=== PATIENT | male | born 1955 | race African-American/Black ===

== ENCOUNTER → 2016-06-12 | Outpatient (CLI) | payer OTHER ==
[2016-06-12 09:11] LABS: Basophils % (A) 0 %; CH 29.7; Eosinophils # (A) 0.1 k/uL (0-0.7); Eosinophils % (A) 1 %; HDW 2.63; HGB 14.2 gm/dL (13.0-17.5); Luc # (Auto) 0.27; Luc % (Auto) 4; Lymphocytes # (A) 1.9 k/uL (1.0-4.8); Lymphocytes % (A) 26 %; MCH 29.5 pg (25.0-35.0); MCHC 31.6 g/dL (31.0-37.0); MCV 93.3 fL (80.0-100.0); Mean Platelet Volume 6.6; Monocytes # (A) 0.4 k/uL (0-1.0); Monocytes % (A) 6 %; Neutrophils # (A) 4.6 k/uL (1.3-7.7); Neutrophils % (A) 63 %; RBC 4.82 m/uL (4.30-5.90); RDW 12.6 % (11.5-15.5); WBC 7.3 k/uL (3.8-10.6); WBC (Perox) 7.09
[2016-06-12 11:31] LABS: ALT 26 U/L (21-72); AST 29 U/L (17-59); Alkaline Phosphatase 72 U/L (38-126); Anion Gap 9 mmol/L; Blood Urea Nitrogen 12 mg/dL (9-20); Calcium 9.7 mg/dL (8.4-10.2); Carbon Dioxide 23 mmol/L (22-30); Chloride 111 mmol/L (98-107); Cholesterol 240 mg/dL (<200); Glucose 82 mg/dL (74-99); Non-African American GFR(MDRD) >60 (>60 ml/min/1.73 sqM); Potassium 4.9 mmol/L (3.5-5.1); Sodium 143 mmol/L (137-145); Total Bilirubin 0.6 mg/dL (0.2-1.3); Total Protein 7.7 g/dL (6.3-8.2); Triglycerides 90 mg/dL (<150)
[2016-06-12 11:39] LABS: HDL Cholesterol 122 mg/dL (40-60)
== END | disposition home or self-care (01) ==
LOC: LABWHC1 08:36
PROVIDERS: ATTEND Family Medicine
DX: Z00.01 Encounter for general adult medical examination with abnormal findings (principal)
CPT/HCPCS: 80061; 80053; 85025; 36415; G0103

== ENCOUNTER → 2016-06-27 | Outpatient (CLI) | payer OTHER ==
--- NOTE | 2016-07-07 14:11 | ECHOF ---
Referral Reason:R01.1 Undiagnosed Cardiac Murmor MEASUREMENTS -------- HEIGHT: 170.2 cm WEIGHT: 70.3 kg BP: RVIDd: 2.7 cm (< 3.3) IVSd: 1.0 cm (0.6 - 1.1) LVIDd: 4.8 cm (3.9 - 5.3) LVPWd: 1.3 cm (0.6 - 1.1) IVSs: 1.4 cm LVIDs: 4.0 cm LVPWs: 1.6 cm LA Diam: 3.4 cm (2.7 - 3.8) Ao Diam: 3.3 cm (2.0 - 3.7) AV Cusp: 2.5 cm (1.5 - 2.6) LA Diam: 4.2 cm (2.7 - 3.8) MV EXCURSION: 20.824 mm (> 18.000) MV EF SLOPE: 102 mm/s (70 - 150) EPSS: 0.5 cm MV E Michael: 0.83 m/s MV DecT: 200 ms MV A Michael: 0.67 m/s MV E/A Ratio: 1.24 AR PHT: 783 ms RAP: 5.00 mmHg RVSP: 20.59 mmHg FINDINGS -------- Sinus rhythm. This was a technically good study. Left ventricular wall thickness is normal. Overall left ventricular systolic function is normal with, an EF between 55 - 60 %. The right ventricle is normal in size. The right atrial size is normal. There is mild aortic valve sclerosis. There is moderate aortic regurgitation. Mild mitral annular calcification present. Tzgp-[id number] mitral regurgitation is present. Mild tricuspid regurgitation present. There is no evidence of pulmonary hypertension. The right ventricular systolic pressure, as measured by Doppler, is 20.59mmHg. There is no pulmonic regurgitation present. The aortic root size is normal. There is no pericardial effusion. CONCLUSIONS -------- 1. Left ventricular wall thickness is normal. 2. Overall left ventricular systolic function is normal with, an EF between 55 - 60 %. 3. There is mild aortic valve sclerosis. 4. There is moderate aortic regurgitation. 5. Mild mitral annular calcification present. 6. Oytg-qy-bvbworcj mitral regurgitation is present. 7. Mild tricuspid regurgitation present. 8. There is no evidence of pulmonary hypertension. 9. The right ventricular systolic pressure, as measured by Doppler, is 20.59mmHg. CLINICAL EDUCATION CONSULTANT: Tamika Morales RDCS
== END ==
LOC: RADECHMAIN 13:03
PROVIDERS: ATTEND Family Medicine
DX: I35.8 Other nonrheumatic aortic valve disorders (principal); I35.1 Nonrheumatic aortic (valve) insufficiency; I07.1 Rheumatic tricuspid insufficiency
CPT/HCPCS: 93306

== ENCOUNTER → 2019-08-30 | Outpatient (CLI) | payer OTHER ==
--- NOTE | 2019-08-31 10:00 | ECHOF ---
Referral Reason:I35.1 nonrheumatic aortic insufficiency MEASUREMENTS -------- HEIGHT: 170.2 cm WEIGHT: 68.0 kg BP: RVIDd: 3.0 cm (< 3.3) IVSd: 1.3 cm (0.6 - 1.1) LVIDd: 5.2 cm (3.9 - 5.3) LVPWd: 1.3 cm (0.6 - 1.1) IVSs: 1.5 cm LVIDs: 3.6 cm LVPWs: 1.8 cm LA Diam: 3.8 cm (2.7 - 3.8) LAESV Index (A-L): 26.57 ml/m Ao Diam: 3.8 cm (2.0 - 3.7) AV Cusp: 2.2 cm (1.5 - 2.6) MV EXCURSION: 17.896 mm (> 18.000) MV EF SLOPE: 67 mm/s (70 - 150) EPSS: 0.7 cm MV E Michael: 0.64 m/s MV DecT: 235 ms MV A Michael: 0.83 m/s MV E/A Ratio: 0.77 AV maxP.20 mmHg AV meanP.71 mmHg AR PHT: 477 ms RAP: 5.00 mmHg RVSP: 26.64 mmHg FINDINGS -------- Sinus rhythm. This was a technically good study. The left ventricular size is normal. There is mild concentric left ventricular hypertrophy. Overa ll left ventricular systolic function is normal with, an EF between 55 - 60 %. The right ventricle is normal in size. Normal LA size by volume 22+/-6 ml/m2. The right atrial size is normal. The atrial septal defect shunts from left to right. The aortic valve is trileaflet and appears structurally normal. There is moderate aortic regurgitat ion. Peak/mean gradient across the Aortic Valve is 15.20mmHg / 6.71mmHg. The mitral valve leaflets are mildly thickened. Mild mitral regurgitation is present. Mild tricuspid regurgitation present. Right ventricular systolic pressure is normal at < 35 mmHg. Trace/mild (physiologic) pulmonic regurgitation. The aortic root is dilated measuring 3.8cm. Normal inferior vena cava with normal inspiratory collapse consistent with estimated right atrial pre ssure of 5 mmHg. The inferior vena cava is mildly dilated. There is no pericardial effusion. CONCLUSIONS -------- 1. There is mild concentric left ventricular hypertrophy. 2. Overall left ventricular systolic function is normal with, an EF between 55 - 60 %. 3. Normal LA size by volume 22+/-6 ml/m2. 4. The aortic valve is trileaflet and appears structurally normal. 5. There is moderate aortic regurgitation. 6. Peak/mean gradient across the Aortic Valve is 15.20mmHg / 6.71mmHg. 7. The mitral valve leaflets are mildly thickened. 8. Mild mitral regurgitation is present. 9. Mild tricuspid regurgitation present. 10. Trace/mild (physiologic) pulmonic regurgitation. 11. The aortic root is dilated measuring 3.8cm. 12. Normal inferior vena cava with normal inspiratory collapse consistent with estimated right atrial pressure of 5 mmHg. 13. The inferior vena cava is mildly dilated. 14. There is no pericardial effusion. LEAD RELAY TESTER: Danielle Gannon RDCS
== END | disposition home or self-care (01) ==
LOC: RADECHMAIN 13:40
PROVIDERS: ATTEND Family Medicine
DX: I08.3 Combined rheumatic disorders of mitral, aortic and tricuspid valves (principal)
CPT/HCPCS: 93306

== ENCOUNTER → 2021-03-05 | Outpatient (CLI) | payer OTHER ==
[2021-03-05 14:59] LABS: Basophils # (A) 0.03 X 10*3/uL (0.00-0.10); Basophils % (A) 0.4 %; Eosinophils # (A) 0.06 X 10*3/uL (0.04-0.35); Eosinophils % (A) 0.8 %; HCT 40.9 % (39.6-50.0); HGB 12.4 g/dL (13.0-17.0); Lymphocytes # (A) 2.18 X 10*3/uL (0.90-5.00); Lymphocytes % (A) 28.4 %; MCH 28.4 pg (27.0-32.0); MCHC 30.3 g/dL (32.0-37.0); MCV 93.6 fL (80.0-97.0); Mean Platelet Volume 10.4 fL (9.5-12.2); Monocytes # (A) 0.62 X 10*3/uL (0.20-1.00); Monocytes % (A) 8.1 %; Neutrophils # (A) 4.77 X 10*3/uL (1.80-7.70); Platelet Count 222 X 10*3/uL (140-440); RBC 4.37 X 10*6/uL (4.40-5.60); RDW 12.7 % (11.5-14.5); WBC 7.68 X 10*3/uL (4.50-10.00)
[2021-03-05 16:30] LABS: C Reactive Protein <0.30 mg/dL (0.00-0.80); Erythrocyte Sedimentation Rate 6 mm/Hr (0-20); Rheumatoid Factor, Qnt <10 IU/mL (0-15)
[2021-03-05 18:54] LABS: ALT 17 U/L (10-49); AST 19 U/L (14-35); African American GFR (CKD) 80.6 (60.0-200.0); Albumin 4.5 g/dL (3.8-4.9); Albumin/Globulin Ratio 1.68 (1.60-3.17); Alkaline Phosphatase 71 U/L (41-126); BUN/Creat Ratio 11.16 Ratio (12.00-20.00); Blood Urea Nitrogen 12.5 mg/dL (9.0-27.0); Calcium 9.4 mg/dL (8.7-10.3); Chloride 109 mmol/L (96-109); Chol/HDL Ratio 2.52 Ratio; Globulin 2.7 g/dL (1.6-3.3); Glucose 87 mg/dL (70-110); LDL Cholesterol,Calculated 121.4 mg/dL (0.0-131.0); Non-African American GFR(CKD) 69.5 (60.0-200.0); Potassium 4.9 mmol/L (3.5-5.5); Sodium 141 mmol/L (135-145); Total Protein 7.1 g/dL (6.2-8.2)
== END | disposition home or self-care (01) ==
LOC: LABWHC1 08:21
PROVIDERS: ATTEND Family Medicine
DX: Z00.01 Encounter for general adult medical examination with abnormal findings (principal)
CPT/HCPCS: 36415; 80053; 80061; 84153; 84443; 85025; 85652; 86038; 86140; 86431

== ENCOUNTER 2022-01-22 08:30 | Day surgery (SDC) | payer OTHER ==
[2022-01-21 12:31] VITALS: BMI 25.0
[2022-01-22] MEDS ORDERED: LACTATED RINGERS 1,000 ML IV SCH (09:31)
[2022-01-22 09:49] VITALS: RESP 16; TEMP 97.4
[2022-01-22] MEDS ORDERED: PROPOFOL 10 MG/ML 20 ML VIAL IV ONE (09:53)
[2022-01-22] MEDS ORDERED: LIDOCAINE 2% INJ 20 MG/ML (2 ML VIAL) ONE (09:53)
--- NOTE | 2022-01-22 10:09 | P.PCN ---
Date of Procedure: 01/22/22 Procedure(s) Performed: BRIEF HISTORY: Patient is a 66-year-old pleasant male scheduled for an elective colonoscopy as a part of screening for colon cancer. His last colonoscopy was 10 years ago. PROCEDURE PERFORMED: Colonoscopy with snare polypectomy. PREOPERATIVE DIAGNOSIS: Screening for colon cancer. IV sedation per Anesthesia. PROCEDURE: After informed consent was obtained, the patient, was brought into the endoscopy unit. IV sedation was administered by Anesthesia under continuous monitoring. Digital rectal examination was normal. Initially the Olympus CF-160 flexible video colonoscope was then inserted in the rectum, gradually advanced into the cecum without any difficulty. Careful examination was performed as the scope was gradually being withdrawn. Ileocecal valve and the appendiceal orifice were visualized and appeared normal. Prep was excellent. Mucosa of the cecum, appeared normal. Ascending colon there was a 5 mm polyp removed by snare polypectomy. Rest of the ascending colon, transverse colon, descending colon, appeared normal. The sigmoid: There was a 7 mm polyp removed by snare polyp rectum he. Rest of the sigmoid colon, and rectum appeared normal. Retroflexion was performed in the rectum and no lesions were seen. The patient tolerated the procedure well. IMPRESSION: 5 mm ascending colon polyp status post polypectomy 7 mm sigmoid colon polyp status post polypectomy RECOMMENDATIONS: Findings of this examination were discussed with the patient as well as his family.. He was advised to follow with the biopsy results. If the biopsy result adenoma he can have a repeat colonoscopy in 5 years.
[2022-01-22 10:43] VITALS: BP 113/60; PULSE 78
== END 2022-01-22 10:53 | disposition home or self-care (01) ==
LOC: ORWHC2ENDO 08:30
PROVIDERS: ATTEND Internal Medicine Gastroenterology
DX: Z12.11 Encounter for screening for malignant neoplasm of colon (principal); D12.2 Benign neoplasm of ascending colon; D12.5 Benign neoplasm of sigmoid colon; F17.200 Nicotine dependence, unspecified, uncomplicated; Z79.899 Other long term (current) drug therapy
CPT/HCPCS: 88305; 45385; J2704; J2001

== ENCOUNTER → 2023-12-30 | Outpatient (CLI) | payer MEDICARE ==
--- NOTE | 2023-12-30 08:22 | US ---
EXAMINATION TYPE: US Aorta Screening DATE OF EXAM: 12/30/2023 COMPARISON: NONE CLINICAL INDICATION: Male, 68 years old with history of Z72.0 TOBACCO USE; AAA screening, tobacco use TECHNIQUE: Multiple sonographic images of the abdominal aorta are obtained with grayscale and color D oppler imaging. with grayscale and color Doppler imaging FINDINGS: EXAM MEASUREMENTS: Abdominal Aorta: Proximal: 3.0 x 2.9 cm Mid: 2.2 x 2.4 cm Distal: 1.9 x 2.1 cm Bifurcation: Right Iliac: 0.9 x 0.9 cm Left Iliac: 1.0 x 0.8 cm PILOT SAFETY INSPECTOR NOTES: Proximal portion upper limits of normal for size, iliacs heavily calcified. 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 [facility], , 12/30/2023 8:19 AM
== END | disposition home or self-care (01) ==
LOC: RADUSWWP 07:51
PROVIDERS: ATTEND Internal Medicine
DX: Z13.6 Encounter for screening for cardiovascular disorders (principal); I70.0 Atherosclerosis of aorta; Z72.0 Tobacco use
CPT/HCPCS: 76706